=== PATIENT | male | born 1990 ===

== ENCOUNTER 2020-06-18 07:22 | Outpatient (CLI) | payer BC, SELFPAY ==
[2020-06-23 11:01] LABS: SARS-CoV-2 RNA Undetected (Undetected); SARS-CoV-2 Specimen Source Nasopharynx
== END 2020-06-18 07:42 ==
PROVIDERS: Visit Provider Physical Medicine & Rehabilitation Sports Medicine
DX: Z11.59 Encounter for screening for other viral diseases (principal)
CPT/HCPCS: U0003

== ENCOUNTER 2020-07-31 13:25 | Outpatient (REF) | payer BC, SELFPAY ==
[2020-08-03 05:05] LABS: SARS-CoV-2 RNA Undetected (Undetected); SARS-CoV-2 Specimen Source Nasopharynx
== END 2020-07-31 13:45 ==
LOC: NCHCN 13:25
PROVIDERS: Visit Provider Family Medicine
DX: Z20.828 Contact with and (suspected) exposure to other viral communicable diseases (principal)
CPT/HCPCS: U0003